=== PATIENT | male | born 1960 | race African-American/Black ===

== ENCOUNTER 2023-09-12 16:11 | Emergency (ER) | payer MEDICARE ==
[~2023-09-12] VITALS: Ht 190.5 cm; Wt 121.0 kg
[~2023-09-12 16:11] MED LIST: ESCI20TA PO; ZIAC10 PO
[2023-09-12 16:17] VITALS: BP 146/76; RESP 18; TEMP 98.3; O2SAT 100
[2023-09-12 16:26] VITALS: PULSE 120
[2023-09-12 19:26] LABS: BASOPHILS % 0.3 % (0.0-2.0); EOSINOPHILS % 1.8 % (0.0-5.0); HEMATOCRIT. 44.3 % (42.0-52.0); HEMOGLOBIN. 14.6 g/dL (14.0-18.0); LYMPHOCYTES % 38.5 % (20.0-50.0); MEAN CORPUSCULAR HEMOGLOBIN 27.6 pg (28.0-32.0); MEAN CORPUSCULAR VOLUME 83.6 fL (80.0-94.0); MEAN PLATELET VOLUME 9.5 fl (7.4-10.4); MONOCYTES % 8.2 % (2.0-8.0); NEUTROPHILS % 51.2 % (40.0-76.0); PLATELET 234 x1000/uL (130-400); WHITE BLOOD COUNT 9.1 x1000/uL (4.5-11.0)
[2023-09-12 19:32] LABS: CHLORIDE 103 mEq/L (98-107); POTASSIUM 4.2 mEq/L (3.5-5.1); SODIUM 133 mEq/L (136-145)
[2023-09-12 19:33] LABS: CALCIUM 10.4 mg/dL (8.7-10.4); CARBON DIOXIDE 21 mEq/L (21-32)
[2023-09-12 19:37] LABS: GLUCOSE 303 mg/dL (70-105); UREA NITROGEN BLOOD 21 mg/dL (9-23)
[2023-09-12 19:38] LABS: CREATININE 1.9 mg/dL (0.6-1.3)
[2023-09-12 19:39] LABS: BETA HYDROXYBUTYRATE 1.8 mMol/L (0.0-0.3)
[2023-09-12 19:40] LABS: ALANINE AMINOTRANSFERASE 26 IU/L (10-49); ALBUMIN 4.7 g/dL (3.2-4.8); ASPARTATE AMINOTRANSFERASE 18 IU/L (<34); BILIRUBIN TOTAL 0.4 mg/dL (0.1-1.0); PROTEIN TOTAL 8.2 g/dL (6.0-8.3)
== END 2023-09-12 20:53 | disposition home or self-care (01) ==
LOC: ER 16:11
DX: N17.9 Acute kidney failure, unspecified (principal); E11.65 Type 2 diabetes mellitus with hyperglycemia; I10 Essential (primary) hypertension; Z88.0 Allergy status to penicillin; Z88.8 Allergy status to other drugs, medicaments and biological substances
CPT/HCPCS: 36415; 80053; 82010; 82962; 85025; 99283